=== PATIENT | male | born 1975 | race Two or more races ===

== ENCOUNTER 2019-09-19 23:27 | Emergency (ER) | payer SELFPAY ==
[~2019-09-19] VITALS: Ht 175.3 cm; Wt 81.6 kg
[2019-09-19 23:36] VITALS: BP 107/44
== END 2019-09-19 23:55 | disposition left against medical advice (07) ==
LOC: ER 23:29
DX: S00.83XA Contusion of other part of head, initial encounter (principal); R51 Headache; M54.2 Cervicalgia; F10.10 Alcohol abuse, uncomplicated; Y90.9 Presence of alcohol in blood, level not specified; Y04.0XXA Assault by unarmed brawl or fight, initial encounter; Y93.89 Activity, other specified; Y92.89 Other specified places as the place of occurrence of the external cause; Y99.8 Other external cause status